=== PATIENT | male | born 1970 ===

== ENCOUNTER 2022-08-07 20:45 | Emergency (ER) | payer SELFPAY ==
[~2022-08-07] VITALS: Ht 182.9 cm; Wt 100.0 kg
[2022-08-07 20:56] VITALS: BP 135/75
[2022-08-07] MEDS ORDERED: IBUPROFEN 600 MG TABLET PO ONE (23:30)
== END 2022-08-07 23:38 | disposition home or self-care (01) ==
LOC: EMS 20:49
DX: S13.4XXA Sprain of ligaments of cervical spine, initial encounter (principal); V49.9XXA Car occupant (driver) (passenger) injured in unspecified traffic accident, initial encounter; Y93.89 Activity, other specified; Y92.89 Other specified places as the place of occurrence of the external cause; Y99.8 Other external cause status
CPT/HCPCS: 99282; Z7502; Z7610